=== PATIENT | female | born 1990 | race Hispanic/Latino ===

== ENCOUNTER 2024-05-06 17:52 | Inpatient (IN) | payer MEDICAID, OTHER ==
[2024-05-06 18:18] VITALS: BMI 37.3
[2024-05-06] MEDS ORDERED: Tranexamic Acid 1,000 MG/10 ML VIAL IVP PRN (18:36)
[2024-05-06] MEDS ORDERED: Promethazine HCl 25 MG/ML VIAL IM PRN (18:36)
[2024-05-06] MEDS ORDERED: Methylergonovine 0.2 MG/ML VIAL IM PRN (18:36)
[2024-05-06] MEDS ORDERED: Ondansetron PF 4 MG/2 ML Vial IVP PRN (18:36)
[2024-05-06] MEDS ORDERED: hydrALAZINE 20 MG/ML VIAL SLOW IVP PRN ×2 (18:36)
[2024-05-06] MEDS ORDERED: Misoprostol 200 MCG TAB PR PRN (18:36)
[2024-05-06] MEDS ORDERED: Diphenoxylate HCl/Atropine Tablet PO PRN (18:36)
[2024-05-06] MEDS ORDERED: Acetaminophen 500 MG TAB PO PRN (18:36)
[2024-05-06] MEDS ORDERED: Lidocaine 1% (PF) 30 ML VIAL SC PRN (18:36)
[2024-05-06] MEDS ORDERED: Carboprost 250 MCG/ML AMP IM PRN (18:36)
[2024-05-06] MEDS ORDERED: Misoprostol 100 MCG TAB VAG SCH (18:45)
[2024-05-06] MEDS ORDERED: Oxytocin 30 units/NS 500 ML 500 ML IV SCH (18:45)
[2024-05-06 18:47] LABS: Hematocrit 38.9 % (34.9-44.5); Hemoglobin 13.7 g/dL (12.0-15.5); Mean Corpuscular HGB CONC 35.2 g/dL (32.0-36.0); Mean Corpuscular Hemoglobin 30.7 pg (27.0-33.0); Mean Corpuscular Volume 87.2 fL (81.6-98.3); Mean Platelet Volume 9.1 fL (7.4-10.4); Platelet Count 334 10x3/uL (150-450); RBC Distribution Width 13.4 % (11.5-14.5); Red Blood Cell (RBC) Count 4.46 10x6/uL (3.90-5.03); White Blood Cell (WBC) Count 11.2 10x3/uL (3.5-10.5)
[2024-05-06 19:20] LABS: Syphilis Antibody Nonreactive (Nonreactive); Syphilis Antibody Index 0.08 S/CO (<1.00 Non-Reactive)
[2024-05-06 19:21] LABS: Hep B Surf Ag - L&D Non-Reactive S/CO (NonReactive)
[2024-05-07] MEDS ORDERED: Bicitra 30 ML UDCUP PO PRN (05:34)
[2024-05-07] MEDS: Famotidine/PF 20 mg/2ml Vial SLOW IVP PRN (07:32)
[2024-05-07] MEDS: CEFAZOLIN 2 GM in Sodium Chloride 0.9% 100 ML IVPB SCH (07:37)
[2024-05-07] MEDS ORDERED: HYDROcodone/Acetaminophen 5/325 mg Tablet PO PRN ×2 (07:49)
[2024-05-07] MEDS ORDERED: hydrALAZINE 20 MG/ML VIAL SLOW IVP PRN (07:49)
[2024-05-07] MEDS ORDERED: diphenhydrAMINE 50 MG/ML VIAL IVP PRN (09:27)
[2024-05-07] MEDS ORDERED: HYDROmorphone 0.5 MG/0.5 ML SYRINGE SLOW IVP PRN (09:27)
[2024-05-07] MEDS ORDERED: Naloxone HCl 0.4 mg/ml Vial IV PRN (09:27)
[2024-05-07] MEDS ORDERED: Moisturizing Cream (Eucerin) 113 GM JAR TOP PRN (09:27)
[2024-05-07] MEDS ORDERED: Naloxone HCl 0.4 mg/ml Vial IVP PRN ×2 (09:27)
[2024-05-07] MEDS ORDERED: Ondansetron PF 4 MG/2 ML Vial IVP PRN (09:27)
[2024-05-07] MEDS ORDERED: Meperidine HCl/PF 25 MG (1 mL) VIAL SLOW IVP PRN (09:27)
[2024-05-07] MEDS ORDERED: fentaNYL 50 mcg/mL 1 mL Vial SLOW IVP PRN (09:27)
[2024-05-07] MEDS ORDERED: Ketorolac Tromethamine 30 MG (1 mL) VIAL IVP SCH (09:30)
[2024-05-07] MEDS ORDERED: Communication Order-Pharmacy FS SCH (09:30)
[2024-05-07] MEDS: Ondansetron PF 4 MG/2 ML Vial IVP PRN (10:39)
[2024-05-07] MEDS: Lactated Ringer's 1,000 ML IV SCH ×2 (10:59→11:01)
[2024-05-07] MEDS: Ondansetron PF 4 MG/2 ML Vial ONE (11:00)
[2024-05-07] MEDS: Boostrix 0.5 ML (Tdap) VIAL (>/=7 yrs of age) IM ONE (11:00)
[2024-05-07] MEDS: Oxytocin 10 UNITS/ML VIAL ONE ×2 (11:00)
[2024-05-07] MEDS: Misoprostol 100 MCG TAB VAG SCH (11:00)
[2024-05-07] MEDS: Dexamethasone 10 MG/ML VIAL ONE (11:00)
[2024-05-07] MEDS: Prenatal Vitamin 1 TAB PO SCH (11:00)
[2024-05-07] MEDS: Morphine PF 10 MG/10 ML VIAL ONE (11:00)
[2024-05-07] MEDS: fentaNYL 50 mcg/mL 1 mL Vial ONE (11:00)
[2024-05-07] MEDS: Docusate 100 MG CAP PO SCH (11:00)
[2024-05-07] MEDS: Promethazine HCl 25 MG/ML VIAL IM PRN (12:30)
[2024-05-07] MEDS: Ketorolac Tromethamine 30 MG (1 mL) VIAL IVP PRN (15:13)
[2024-05-08 04:53] LABS: Hematocrit 32.3 % (34.9-44.5); Hemoglobin 11.4 g/dL (12.0-15.5); Mean Corpuscular HGB CONC 35.3 g/dL (32.0-36.0); Mean Corpuscular Hemoglobin 31.2 pg (27.0-33.0); Mean Corpuscular Volume 88.5 fL (81.6-98.3); Mean Platelet Volume 9.5 fL (7.4-10.4); Platelet Count 292 10x3/uL (150-450); RBC Distribution Width 13.2 % (11.5-14.5); Red Blood Cell (RBC) Count 3.65 10x6/uL (3.90-5.03); White Blood Cell (WBC) Count 12.5 10x3/uL (3.5-10.5)
[2024-05-08] MEDS: Levothyroxine Sodium 75 MCG TAB PO SCH (06:29)
[2024-05-08] MEDS: Simethicone Chewable 80 MG TAB PO PRN (10:12)
[2024-05-08] MEDS: HYDROcodone/Acetaminophen 5/325 mg Tablet PO PRN (10:12)
[2024-05-08] MEDS: Acetaminophen 325 MG TAB PO PRN (12:15)
[2024-05-08] MEDS: Ibuprofen 800 MG TAB PO SCH (14:44)
[2024-05-09 07:39] VITALS: BP 102/55; TEMP 97.9
[2024-05-09] MEDS: Polyethylene Glycol 3350 17 GM Packet PO SCH (08:34)
== END 2024-05-09 14:05 | disposition home or self-care (01) | DRG 787 ==
LOC: CSHLD 17:52 → CSHPP 05-07 11:18
PROVIDERS: ADMIT Family Medicine; ATTEND Family Medicine
PROC: 10D00Z1 Extraction of Products of Conception, Low, Open Approach (ICD-10-PCS; principal; 2024-05-07)
DX: O34.211 Maternal care for low transverse scar from previous cesarean delivery (principal); O44.43 Low lying placenta NOS or without hemorrhage, third trimester; O99.284 Endocrine, nutritional and metabolic diseases complicating childbirth; O99.214 Obesity complicating childbirth; E74.39 Other disorders of intestinal carbohydrate absorption; Z3A.39 39 weeks gestation of pregnancy; Z37.0 Single live birth
CPT/HCPCS: 36415; 51702; 85027; 86780; 86850; 86900; 86901; 87340; J1100; J1885; J2274; J2405; J2550; J2590; J3010; S0028